=== PATIENT | female | born 1990 | race Asian ===

== ENCOUNTER 2017-04-26 19:38 | Emergency (ER) | payer OTHER ==
[~2017-04-26] VITALS: Ht 152.4 cm; Wt 71.0 kg
[~2017-04-26 19:38] MED LIST: AMO500 PO; AUG875 PO; IBUP-1542 PO; PRED20TA PO
[2017-04-26 20:39] VITALS: Ht 152.4 cm; Wt 71.0 kg
[2017-04-26] MEDS ORDERED: SOD CHLORIDE 0.9% 1,000 ML IV STA (21:15)
[2017-04-26] MEDS ORDERED: KETOROLAC 30 MG INJ IV STA (21:15)
[2017-04-26 22:07] LABS: ADD SCAN DIFF NO
[2017-04-26 22:12] LABS: BASOPHIL # 0.1 10^3/ul (0.0-0.1); BASOPHILS % 0.7 % (0.0-2.0); EOSINOPHILS # 0.1 10^3/ul (0.0-0.5); EOSINOPHILS % 0.9 % (0.0-7.0); HEMATOCRIT 41.6 % (37.0-47.0); HEMOGLOBIN 14.2 g/dl (12.0-16.0); LYMPHOCYTES # 4.2 10^3/ul (0.8-2.9); LYMPHOCYTES % 33.1 % (15.0-51.0); MEAN CORPUSCULAR HEMOGLOBIN 29.9 pg (29.0-33.0); MEAN CORPUSCULAR HGB CONC 34.1 g/dl (32.0-37.0); MEAN CORPUSCULAR VOLUME 87.6 fl (82.0-101.0); MEAN PLATELET VOLUME 10.6 fl (7.4-10.4); MONOCYTE # 0.7 10^3/ul (0.3-0.9); MONOCYTES % 5.8 % (0.0-11.0); NEUTROPHIL # 7.4 10^3/ul (1.6-7.5); NEUTROPHILS % 58.9 % (39.0-77.0); PLATELET COUNT 316 10^3/UL (140-415); RED BLOOD COUNT 4.75 10^6/ul (4.20-5.40); WHITE BLOOD COUNT 12.6 10^3/ul (4.8-10.8)
[2017-04-26 22:14] LABS: ADD UMIC YES; UR BILIRUBIN (Dip) NEGATIVE (NEGATIVE); UR BLOOD (Dip) 1+ (NEGATIVE); UR CLARITY CLEAR (CLEAR); UR COLOR LT. YELLOW (YELLOW); UR GLUCOSE (Dip) NEGATIVE (NEGATIVE); UR KETONES (Dip) NEGATIVE (NEGATIVE); UR LEUKOCYTE ESTERASE (Dip) 1+ (NEGATIVE); UR NITRITE (Dip) NEGATIVE (NEGATIVE); UR TOTAL PROTEIN (Dip) NEGATIVE (NEGATIVE); UR UROBILINOGEN (Dip) 0.2 E.U./dL (0.1-1.0)
[2017-04-26 22:25] LABS: UR SQUAMOUS EPITHELIAL CELL MODERATE; URINE RBCS 25-50 /HPF (0)
--- NOTE | 2017-04-26 22:25 | RADRPT ---
PROCEDURE: Renal US. CLINICAL INDICATION: left flank pain TECHNIQUE: Multiple sonographic images of the kidneys were obtained. The images were reviewed on a PACS workstation. COMPARISON: No prior studies are available for comparison. FINDINGS: The kidneys are well visualized. The right kidney measures 10.8 cm sagittal by three-point a by 4.7 cm. The left kidney measures 10.6 x 5.2 by 4.3 cm. There is a 3 mm echogenic focus in the lower mid dle third of the left kidney. This may be the result of a small myelolipoma. A nonobstructive neph rolith is less likely.. There are no focal areas of abnormal echogenicity. There is no evidence for obstructive uropathy. The urinary bladder is unremarkable. IMPRESSION: 1. No evidence of hydronephrosis involving either kidney. No obstructing ureterolith or nephrolith is identified. 2. 3 mm echogenic focus without acoustic shadowing in the lower middle third of the left kidney. T his is likely a small myelolipoma. Its appearance is benign. Physician Dillon Date Time Electronically viewed and signed by Physician Dillon on 04/26/2017 22:25 /
[2017-04-26 22:26] LABS: UR BACTERIA FEW
[2017-04-26 22:39] LABS: ALBUMIN 5.2 g/dl (3.3-4.9); ALBUMIN/GLOBULIN RATIO 1.57; BILIRUBIN,INDIRECT 0.2 mg/dl (0-1.1); BILIRUBIN,TOTAL 0.2 mg/dl (0.2-1.3); CALCIUM 10.2 mg/dl (8.4-10.2); CREATININE 0.61 mg/dl (0.44-1.00); POTASSIUM 3.5 mmol/L (3.5-5.1); TOTAL PROTEIN 8.5 g/dl (6.1-8.1)
[2017-04-26] MEDS ORDERED: CEPH-443 PO (23:53)
[2017-04-26] MEDS ORDERED: NAPR-260 PO (23:53)
[2017-04-27 00:09] VITALS: BP 113/85; PULSE 85; RESP 18
--- NOTE | 2017-04-27 00:32 | ERD ---
ER Documentation Chief Complaint Date/Time DATE: 04/27/17 TIME: 00:30 Chief Complaint Left pelvic and flank pain since last night HPI 27-year-old female patient with a past medical history of nephrolithiasis presents to the ED complaining of left flank pain radiating to her left pelvic region. Describes the pain as achy and rates it a 5 out of 10. States that it was a 10 out of 10 last night. States that she was diagnosed with nephrolithiasis 5 months ago in the [facility]. Reports that it was nonobstructing. Denies any fever, chills, nausea, vomiting, diarrhea. Reports normal daily bowel movements. Does not remember her last menses. ROS All systems reviewed and are negative except as per history of present illness. Medications Home Meds Active Scripts Cephalexin* (Keflex*) 500 Mg Capsule, 500 MG PO QID for 7 Days, CAP Prov:DOROTHY PATEL PA-C 04/26/17 Naproxen* (Naprosyn*) 500 Mg Tablet, 500 MG PO BID Y for PAIN AND/OR INFLAMMATION, #30 TAB Prov:DOROTHY PATEL PA-C 04/26/17 Ibuprofen* (Motrin*) 600 Mg Tab, 600 MG PO Q8, #30 [facility] 12/20/15 Amoxicillin-Clavulanate K* (Augmentin*) 875 Mg Tab, 875 MG PO BID for 10 Days, TAB [facility] 12/20/15 Amoxicillin* (Amoxicillin*) 500 Mg Cap, 500 MG PO BID for 5 Days, CAP Prov:DURGA BERMEO NP 12/15/15 Prednisone* (Prednisone*) 20 Mg Tab, 20 MG PO DAILY for 4 Days, TAB Prov:DURGA BERMEO NP 12/15/15 Ibuprofen* (Motrin*) 600 Mg Tab, 600 MG PO Q6, #20 TAB Prov:CALEB TITUS PA-C 09/21/15 Allergies Allergies: Coded Allergies: No Known Drug Allergies (Verified Allergy, Unknown, 09/21/15) PMhx/Soc Medical and Surgical Hx: pt denies Medical Hx, pt denies Surgical Hx History of Surgery: No Anesthesia Reaction: No Hx Neurological Disorder: No Hx Respiratory Disorders: No Hx Cardiac Disorders: No Hx Psychiatric Problems: No Hx Miscellaneous Medical Probl: No Hx Alcohol Use: No Hx Substance Use: No Hx Tobacco Use: No Physical Exam Vitals Vital Signs Date Time Temp Pulse Resp B/P Pulse Ox O2 Delivery O2 Flow Rate FiO2 04/27/17 00:09 85 18 113/85 97 Room Air 04/26/17 20:39 99.1 107 20 135/87 97 Physical Exam Const: [id number], well-nourished. In no acute distress. Head: Atraumatic, normocephalic Eyes: Normal Conjunctiva without injection. No purulent discharge. ENT: Normal external ear, nose. Moist oropharynx without tonsillar exudates. Non -erythematous pharynx. Uvula midline. No drooling. No trismus. Neck: No cervical midline tenderness. Full range of motion. No meningismus. No cervical lymphadenopathy. No JVD. Resp: Clear to auscultation bilaterally. No wheezing, rhonchi, rales, or crackles. No accessory muscle use. No retractions. Cardio: Regular rate and rhythm. No murmurs, rubs or gallops. Abd: Soft, left pelvic pain, non distended. Normal bowel sounds. No palpable masses. No rebound tenderness. No guarding. Negative McBurney's point. Negative psoas sign. Negative obturator sign. Skin: No petechiae or rashes Back: No midline tenderness. No CVA tenderness. Ext: No cyanosis, or edema. Neur: Awake and alert. Normal gait. Normal coordination. Psych: Normal Mood and Affect Results 24 hrs Laboratory Tests Test 04/26/17 21:45 White Blood Count 12.610^3/ul Red Blood Count 4.7510^6/ul Hemoglobin 14.2g/dl Hematocrit 41.6% Mean Corpuscular Volume 87.6fl Mean Corpuscular Hemoglobin 29.9pg Mean Corpuscular Hemoglobin Concent 34.1g/dl Red Cell Distribution Width 12.0% Platelet Count 11366^3/UL Mean Platelet Volume 10.6fl Neutrophils % 58.9% Lymphocytes % 33.1% Monocytes % 5.8% Eosinophils % 0.9% Basophils % 0.7% Nucleated Red Blood Cells % 0.0/100WBC Neutrophils # 7.410^3/ul Lymphocytes # 4.210^3/ul Monocytes # 0.710^3/ul Eosinophils # 0.110^3/ul Basophils # 0.110^3/ul Nucleated Red Blood Cells # 0.010^3/ul Urine Color LT. YELLOW Urine Clarity CLEAR Urine pH 5.5 Urine Specific [place] 1.010 Urine Ketones NEGATIVE Urine Nitrite NEGATIVE Urine Bilirubin NEGATIVE Urine Urobilinogen 0.2 E.U./dL Urine Leukocyte Esterase 1+ Urine Microscopic RBC 25-50/HPF Urine Microscopic WBC 2-5/HPF Urine Squamous Epithelial Cells MODERATE Urine Bacteria FEW Urine Hemoglobin 1+ Urine Glucose NEGATIVE% Urine Total Protein NEGATIVE Sodium Level 141mmol/L Potassium Level 3.5mmol/L Chloride Level 103mmol/L Carbon Dioxide Level 28mmol/L Anion Gap 14 Blood Urea Nitrogen 8mg/dl Creatinine 0.61mg/dl Glucose Level 97mg/dl Calcium Level 10.2mg/dl Total Bilirubin 0.2mg/dl Direct Bilirubin 0.00mg/dl Indirect Bilirubin 0.2mg/dl Aspartate Amino Transf (AST/SGOT) 22IU/L Alanine Aminotransferase (ALT/SGPT) 29IU/L Alkaline Phosphatase 69IU/L Total Protein 8.5g/dl Albumin 5.2g/dl Globulin 3.30g/dl Albumin/Globulin Ratio 1.57 Lipase 85U/L Current Medications Medications (Trade) Dose Ordered Sig/Nghia Route PRN Reason Start Time Stop Time Status Last Admin Dose Admin Sodium Chloride (NS) 1,000 ml @ 1,000 mls/hr Q1H STAT IV 04/26/17 21:15 04/26/17 22:14 DC 04/26/17 21:56 Ketorolac Tromethamine (Toradol) 30 mg ONCE STAT IV 04/26/17 21:15 04/26/17 21:21 DC 04/26/17 21:57 Procedures/MDM This is a 27-year-old female patient with no significant past medical history presents to the ED complaining of left flank pain radiating to her left pelvic region. Patient is afebrile nontoxic appearing. Patient has normal vital signs. Patient was further worked up with CBC, CMP, lipase, UA, urine , renal ultrasound. Patient's pain and symptoms have improved after treatment with 30 mg IV ketorolac, 1 L of normal saline. CBC: Leukocytosis of 12.6. No e/o of systemic infection. No e/o anemia. CMP: No e/o severe acidosis, alkalosis, renal failure, diabetic ketoacidosis, liver disease Lipase within normal limits. Urine: 1+ leukocyte esterase with WBC 2-5, no nitrites, 2+ hematuria. Urine : negative PROCEDURE: Renal US. CLINICAL INDICATION: left flank pain TECHNIQUE: Multiple sonographic images of the kidneys were obtained. The images were reviewed on a PACS workstation. COMPARISON: No prior studies are available for comparison. FINDINGS: The kidneys are well visualized. The right kidney measures 10.8 cm sagittal by three-point a by 4.7 cm. The left kidney measures 10.6 x 5.2 by 4.3 cm. There is a 3 mm echogenic focus in the lower middle third of the left kidney. This may be the result of a small myelolipoma. A nonobstructive nephrolith is less likely.. There are no focal areas of abnormal echogenicity. There is no evidence for obstructive uropathy. The urinary bladder is unremarkable. IMPRESSION: 1. No evidence of hydronephrosis involving either kidney. No obstructing ureterolith or nephrolith is identified. 2. 3 mm echogenic focus without acoustic shadowing in the lower middle third of the left kidney. This is likely a small myelolipoma. Its appearance is benign. Patient symptoms are likely due to nephrolithiasis without any signs of obstruction or hydronephrosis. Low suspicion for gastritis, GERD, peptic ulcer disease, cholecystitis, choledocholithiasis, cholangitis, pancreatitis, appendicitis, bowel obstruction, ileus, volvulus, nephrolithiasis, pyelonephritis, hepatitis, perforated viscus, diverticulitis, abdominal hernia, acute abdomen, mesenteric ischemia or other emergent conditions. 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 Instructed patient to return to the ED sooner for any worsening symptoms. Patient's questions were answered. Patient understood and agreed with discharge plan. Patient discharged stable. Departure Diagnosis: Primary Impression: Flank pain Additional Impression: Urinary tract infection Urinary tract infection type: site unspecified Hematuria presence: with hematuria Qualified Code: N39.0 - Urinary tract infection with hematuria, site unspecified Condition: Stable Patient Instructions: Urinary Tract Infections in Women, Flank Pain, Uncertain Cause, Kidney Stone W/ Colic Additional Instructions: Call your primary care doctor TOMORROW for an appointment during the next 1-2 days.See the doctor sooner or return here if your condition worsens before your appointment time. DOROTHY PATEL PA-C Apr 27, 2017 00:32 days.See the doctor sooner or return here if your condition worsens before your appointment time. DOROTHY PATEL PA-C Apr 27, 2017 00:32
== END 2017-04-27 00:10 | disposition home or self-care (01) ==
LOC: FTE 19:38
DX: R10.9 Unspecified abdominal pain (principal); N39.0 Urinary tract infection, site not specified; R10.2 Pelvic and perineal pain
CPT/HCPCS: 76775; 80053; 81001; 83690; 85025; J1885; J7030; 36415; 96374

== ENCOUNTER 2017-07-19 13:17 | Emergency (ER) | payer OTHER ==
[~2017-07-19] VITALS: Wt 74.5 kg
[~2017-07-19 13:17] MED LIST changes: +CEPH-443 PO; +NAPR-260 PO
[2017-07-19 15:11] LABS: URINE BLOOD (Dip) POC 2+ (NEGATIVE)
[2017-07-19] MEDS ORDERED: PHEN-538 PO (15:19)
[2017-07-19] MEDS ORDERED: CEPH-443 PO (15:19)
[2017-07-19] MEDS ORDERED: CEPHALEXIN 500 MG CAP PO ONE (15:30)
[2017-07-19] MEDS ORDERED: PHENAZOPYRIDINE 100 MG TAB PO ONE (15:30)
--- NOTE | 2017-08-04 12:37 | ERD ---
ER Documentation Chief Complaint Date/Time DATE Of service 07/19/2017. Date of dictation 08/04/2017 TIME: 12:35 Chief Complaint flank pain, blood in urine HPI 27-year-old female presents with dysuria and hematuria. She has some mild lower abdominal pain or low back pain. She denies any fevers, vomiting right lower quadrant abdominal pain. She denies . ROS All systems reviewed and are negative except as per history of present illness. Medications Home Meds Active Scripts Phenazopyridine Hcl* (Pyridium*) 200 Mg Tab, 200 MG PO TID Y for URINARY PAIN, # 6 TAB Prov:ANTOINE VILCHIS MD 07/19/17 Cephalexin* (Keflex*) 500 Mg Capsule, 500 MG PO QID for 5 Days, CAP Prov:ANTOINE VILCHIS MD 07/19/17 Cephalexin* (Keflex*) 500 Mg Capsule, 500 MG PO QID for 7 Days, CAP Prov:DOROTHY PATEL PA-C 04/26/17 Naproxen* (Naprosyn*) 500 Mg Tablet, 500 MG PO BID Y for PAIN AND/OR INFLAMMATION, #30 TAB Prov:DOROTHY PATEL PA-C 04/26/17 Ibuprofen* (Motrin*) 600 Mg Tab, 600 MG PO Q8, #30 TAB Prov:MARÍA QUIROGA DO 12/20/15 Amoxicillin-Clavulanate K* (Augmentin*) 875 Mg Tab, 875 MG PO BID for 10 Days, TAB Prov:MARÍA QUIROGA DO 12/20/15 Amoxicillin* (Amoxicillin*) 500 Mg Cap, 500 MG PO BID for 5 Days, CAP Prov:DURGA BERMEO NP 12/15/15 Prednisone* (Prednisone*) 20 Mg Tab, 20 MG PO DAILY for 4 Days, TAB Prov:DURGA BERMEO NP 12/15/15 Ibuprofen* (Motrin*) 600 Mg Tab, 600 MG PO Q6, #20 TAB Prov:CALEB TITUS PA-C 09/21/15 Allergies Allergies: Coded Allergies: No Known Drug Allergies (Verified Allergy, Unknown, 09/21/15) PMhx/Soc History of Surgery: No Anesthesia Reaction: No Hx Neurological Disorder: No Hx Respiratory Disorders: No Hx Cardiac Disorders: No Hx Psychiatric Problems: No Hx Miscellaneous Medical Probl: No Hx Alcohol Use: No Hx Substance Use: No Hx Tobacco Use: No Smoking Status: Never smoker Physical Exam Physical Exam Const: []Alert, [id number]. Head: Atraumatic Eyes: Normal Conjunctiva ENT: Normal External Ears, Nose and Mouth. Neck: Full range of motion..~ No meningismus. Resp: Clear to auscultation bilaterally Cardio: Regular rate and rhythm, no murmurs Abd: Soft, Minimal suprapubic tenderness Urine shows hemoglobin and leukocytes. Patient presents with dysuria no abdominal pain and signs of UTI. Current signs and symptoms do not suggest appendicitis, sepsis, ectopic , PID. She will be treated with Keflex and Pyridium and further observation at home. The patient was stable with no new complaints during the ER course. Clinically, there is no current evidence to suggest meningitis, sepsis, acute abdomen, pneumonia, acute coronary syndrome , pulmonary embolism, or any other emergent condition appearing to require further evaluation or hospitalization. The patient should certainly return for any new or worsening symptoms per the aftercare instructions. They should otherwise follow-up with her primary care doctor for reevaluation this week., non distended. Normal bowel sounds Skin: No petechiae or rashes Back: No midline or flank tenderness Ext: No cyanosis, or edema Neur: Awake and alert Psych: Normal Mood and Affect Results 24 hrs Laboratory Tests Test 07/19/17 15:16 07/20/17 12:12 Bedside Urine pH (LAB) 6.5 Bedside Urine Protein (LAB) Negative Bedside Urine Glucose (UA) Negative Bedside Urine Ketones (LAB) Negative Bedside Urine Blood 2+ Bedside Urine Nitrite (LAB) Negative Bedside Urine Leukocyte Esterase (L Trace Lab Scanned Report [id number] Current Medications Medications (Trade) Dose Ordered Sig/Nghia Route PRN Reason Start Time Stop Time Status Last Admin Dose Admin Cephalexin (Keflex) 500 mg ONCE ONCE PO 07/19/17 15:30 07/19/17 15:31 DC 07/19/17 15:30 Phenazopyridine HCl (Pyridium) 200 mg ONCE ONCE PO 07/19/17 15:30 07/19/17 15:31 DC 07/19/17 15:30 Departure Diagnosis: Primary Impression: Dysuria Additional Impression: Urinary tract infection Urinary tract infection type: acute cystitis Hematuria presence: without hematuria Qualified Code: N30.00 - Acute cystitis without hematuria Condition: Stable Patient Instructions: Understanding Urinary Tract Infections (UTIs) Additional Instructions: Urine shows infection. Drink plenty of fluids at home. Recheck for new or worsening symptoms with primary care doctor. ANTOINE VILCHIS MD Aug 04, 2017 12:37
== END 2017-07-19 15:40 | disposition home or self-care (01) ==
LOC: FTE 13:17
DX: N30.00 Acute cystitis without hematuria (principal)
CPT/HCPCS: 81003; Z7502; Z7610; 99283

== ENCOUNTER 2017-08-19 20:09 | Emergency (ER) | payer OTHER ==
[~2017-08-19] VITALS: Ht 152.4 cm; Wt 72.0 kg
[~2017-08-19 20:09] MED LIST changes: -AMO500 PO; +AMOX500C2 PO; +PHEN-538 PO
[2017-08-19 20:16] VITALS: Ht 152.4 cm; Wt 72.0 kg
[2017-08-19] MEDS ORDERED: ONDANSETRON (ODT) 4 MG TAB ODT STA (20:37)
--- NOTE | 2017-08-19 20:45 | ERD ---
ER Documentation Chief Complaint Date/Time DATE: 08/19/17 TIME: 20:43 Chief Complaint blood in urine since yesterday HPI Patient is a 27-year-old female who is otherwise healthy and is complaining of 2 complaints. She is complaining of dysuria hematuria and increased urinary frequency and low back pain that she has had since yesterday. No nausea or vomiting. No fever. She is also complaining of dizziness that is worse when she is driving in her car. She states it feels like the room is spinning. No chest pain or shortness of breath. She has not tried any medications for this. Last menstrual period was August 08. ROS All systems reviewed and are negative except as per history of present illness. Medications Home Meds Active Scripts Meclizine Hcl* (Meclizine Hcl*) 25 Mg Tablet, 25 MG PO Q8H Y for DIZZINESS, #30 TAB Prov:TONI JONES PA-C 08/19/17 Ondansetron (Ondansetron Odt) 4 Mg Tab.rapdis, 4 MG PO Q6H Y for NAUSEA AND/OR VOMITING, #15 TAB Prov:TONI JONES PA-C 08/19/17 Cephalexin* (Keflex*) 500 Mg Capsule, 500 MG PO BID for 7 Days, CAP Prov:TONI JONES PA-C 08/19/17 Phenazopyridine Hcl* (Pyridium*) 200 Mg Tab, 200 MG PO TID Y for URINARY PAIN, # 6 TAB Prov:ANTOINE VILCHIS MD 07/19/17 Cephalexin* (Keflex*) 500 Mg Capsule, 500 MG PO QID for 5 Days, CAP Prov:ANTOINE VILCHIS MD 07/19/17 Cephalexin* (Keflex*) 500 Mg Capsule, 500 MG PO QID for 7 Days, CAP Prov:DOROTHY PATEL PA-C 04/26/17 Naproxen* (Naprosyn*) 500 Mg Tablet, 500 MG PO BID Y for PAIN AND/OR INFLAMMATION, #30 TAB Prov:DOROTHY PATEL PA-C 04/26/17 Ibuprofen* (Motrin*) 600 Mg Tab, 600 MG PO Q8, #30 TAB Prov:MARÍA QUIROGA DO 12/20/15 Amoxicillin-Clavulanate K* (Augmentin*) 875 Mg Tab, 875 MG PO BID for 10 Days, TAB Prov:MARÍA QUIROGA DO 12/20/15 Amoxicillin* (Amoxicillin*) 500 Mg Cap, 500 MG PO BID for 5 Days, CAP Prov:DURGA BERMEO NEEDLE POLISHER 12/15/15 Prednisone* (Prednisone*) 20 Mg Tab, 20 MG PO DAILY for 4 Days, TAB Prov:DURGA BERMEO NEEDLE POL[employer]ER 12/15/15 Ibuprofen* (Motrin*) 600 Mg Tab, 600 MG PO Q6, #20 TAB Prov:CALEB TITUS PA-C 09/21/15 Allergies Allergies: Coded Allergies: No Known Drug Allergies (Verified Allergy, Unknown, 09/21/15) PMhx/Soc History of Surgery: No Anesthesia Reaction: No Hx Neurological Disorder: No Hx Respiratory Disorders: No Hx Cardiac Disorders: No Hx Psychiatric Problems: No Hx Miscellaneous Medical Probl: No Hx Alcohol Use: No Hx Substance Use: No Hx Tobacco Use: No Smoking Status: Never smoker FmHx Family History: No diabetes Physical Exam Vitals Vital Signs Date Time Temp Pulse Resp B/P Pulse Ox O2 Delivery O2 Flow Rate FiO2 08/19/17 20:16 97.6 79 20 120/68 100 Physical Exam INITIAL VITAL SIGNS: Reviewed by me GENERAL: Awake, alert and oriented x 4, well appearing, nontoxic, speaking in full sentences. No acute distress HEAD: Atraumatic NECK: Supple. No masses. Full range of motion. No meningismus. No midline tenderness. RESPIRATORY: Clear to auscultation bilaterally. Symmetric chest wall rise. No wheezing or rales. No accessory muscle use. CV: Regular rate and rhythm. No murmurs, rubs, or gallops. ABDOMEN: Soft, non-distended. Nontender. Negative Many. Negative McBurneys point tenderness. No CVA tenderness bilaterally. No guarding. No rebound. : Deffered. NEUROLOGIC: Normal mental status and speech. Face is symmetric. Moves all extremities equally. Motor and sensory distally intact. Normal coordination. Ambulates with a strong steady gait. Results 24 hrs Laboratory Tests Test 08/19/17 20:45 08/19/17 20:53 Urine Color YELLOW Urine Clarity SLIGHTLY CLOUDY Urine pH 6.0 Urine Specific [place] 1.017 Urine Ketones NEGATIVEmg/dL Urine Nitrite NEGATIVEmg/dL Urine Bilirubin NEGATIVEmg/dL Urine Urobilinogen NEGATIVEmg/dL Urine Leukocyte Esterase TRACELeu/ul Urine Microscopic RBC > 182/HPF Urine Microscopic WBC 17/HPF Urine Squamous Epithelial Cells FEW/HPF Urine Hemoglobin 3+mg/dL Urine Glucose NEGATIVEmg/dL Urine Total Protein NEGATIVEmg/dl Bedside Glucose 118mg/dL Current Medications Medications (Trade) Dose Ordered Sig/Nghia Route PRN Reason Start Time Stop Time Status Last Admin Dose Admin Ondansetron HCl (Zofran Odt) 4 mg ONCE STAT ODT 08/19/17 20:37 08/19/17 20:39 DC 08/19/17 20:50 Meclizine HCl (Antivert) 25 mg ONCE ONCE PO 08/19/17 21:00 08/19/17 21:01 DC 08/19/17 20:50 Procedures/MDM 27-year-old female presents with dysuria hematuria and increased urinary frequency. She most likely has a UTI urinalysis and urine test was ordered. She has no nausea vomiting or fever I doubt she has pyelonephritis or kidney stones. Doubt any emergent cause of her urinary symptoms. Patients is alert, oriented, well appearing, and in no distress with normal vital signs. There is no fever, tachycardia, or tachypnea. She is also complaining of dizziness that is usually worse when she is driving in her car. She is otherwise healthy and has no significant past medical history. She is well- appearing in no distress and neurological exam is normal. This is most likely vertigo and she states that this dizziness is worse when she moves her head and feels like the room is spinning. She was given Zofran and meclizine here. EKG and Accu-Chek ordered. Urinalysis confirms urinary tract infection. Accu-Chek and EKG shows no acute abnormalities. Patient discharged with Keflex, Zofran, and meclizine. Patient counseled regarding my diagnostic impression and care plan. Prior to discharge all questions answered. Pt agrees with treatment plan and understands strict return precautions. Pt is instructed to follow up with primary care provider within 24-48 hours. Precautionary instructions provided including instructions to return to the ER if not improving or for any worsening or changing symptoms or concerns. Departure Diagnosis: Primary Impression: Dysuria Additional Impression: Benign positional vertigo Condition: Stable TONI JONES PA-C Aug 19, 2017 20:45
[2017-08-19] MEDS ORDERED: MECLIZINE 12.5 MG TAB PO ONE (21:00)
[2017-08-19 21:33] LABS: ADD UMIC YES; UR ASCORBIC ACID NEGATIVE (NEGATIVE); UR BILIRUBIN (Dip) NEGATIVE (NEGATIVE); UR BLOOD (Dip) 3+ mg/dL (NEGATIVE); UR CLARITY SLIGHTLY CLOUDY (CLEAR); UR COLOR YELLOW (YELLOW); UR GLUCOSE (Dip) NEGATIVE (NEGATIVE); UR KETONES (Dip) NEGATIVE (NEGATIVE); UR LEUKOCYTE ESTERASE (Dip) TRACE Leu/ul (NEGATIVE); UR NITRITE (Dip) NEGATIVE (NEGATIVE); UR RBC > 182 /HPF (0-5); UR SPECIFIC GRAVITY (Dip) 1.017 (1.003-1.030); UR SQUAMOUS EPITHELIAL CELL FEW /HPF (FEW); UR TOTAL PROTEIN (Dip) NEGATIVE (NEGATIVE); UR UROBILINOGEN (Dip) NEGATIVE (NEGATIVE)
[2017-08-19] MEDS ORDERED: CEPH-443 PO (21:39)
[2017-08-19] MEDS ORDERED: ONDA4TAB14 PO (21:39)
[2017-08-19] MEDS ORDERED: MECL-77 PO (21:39)
== END 2017-08-19 21:50 | disposition home or self-care (01) ==
LOC: FTE 20:09
DX: H81.10 Benign paroxysmal vertigo, unspecified ear (principal); R30.0 Dysuria
CPT/HCPCS: 81001; 82962; 93005; Z7502; Z7610

== ENCOUNTER 2019-06-26 10:18 | Emergency (ER) | payer OTHER ==
[~2019-06-26] VITALS: Ht 152.4 cm; Wt 68.0 kg
[~2019-06-26 10:18] MED LIST changes: +MECL-77 PO; -NAPR-260 PO; +NAPR-985 PO; +ONDA4TAB14 PO
[2019-06-26 10:21] VITALS: BP 118/82; PULSE 70; RESP 18; Ht 152.4 cm; Wt 68.0 kg
[2019-06-26] MEDS ORDERED: ACETAMINOPHEN 500 MG TAB PO STA (11:23)
--- NOTE | 2019-06-28 10:57 | ERD ---
ER Documentation Chief Complaint Chief Complaint dysuria and hematuria x 4 days HPI This is a 29 yo female patient who presents with urinary frequency x4days. No fevers, no back pain, no vaginal discharge. ROS All systems reviewed and are negative except as per history of present illness. Medications Home Meds Active Scripts Meclizine Hcl* (Meclizine Hcl*) 25 Mg Tablet, 25 MG PO Q8H PRN for DIZZINESS, #30 TAB Prov:TONI JONES PA-C 08/19/17 Ondansetron (Ondansetron Odt) 4 Mg Tab.rapdis, 4 MG PO Q6H PRN for NAUSEA AND/OR VOMITING, #15 TAB Prov:TONI JONES PA-C 08/19/17 Cephalexin* (Keflex*) 500 Mg Capsule, 500 MG PO BID for 7 Days, CAP Prov:TONI JONES PA-C 08/19/17 Phenazopyridine Hcl* (Pyridium*) 200 Mg Tab, 200 MG PO TID PRN for URINARY PAIN, #6 TAB Prov:ANTOINE VILCHIS MD 07/19/17 Cephalexin* (Keflex*) 500 Mg Capsule, 500 MG PO QID for 5 Days, CAP Prov:ANTOINE VILCHIS MD 07/19/17 Cephalexin* (Keflex*) 500 Mg Capsule, 500 MG PO QID for 7 Days, CAP Prov:DOROTHY PATEL PA-C 04/26/17 Naproxen* (Naprosyn*) 500 Mg Tablet, 500 MG PO BID PRN for PAIN AND/OR INFLAMMATION, #30 TAB Prov:DOROTHY PATEL PA-C 04/26/17 Ibuprofen* (Motrin*) 600 Mg Tab, 600 MG PO Q8, #30 TAB Prov:MARÍA QUIROGA DO 12/20/15 Amoxicillin-Clavulanate K* (Augmentin*) 875 Mg Tab, 875 MG PO BID for 10 Days, TAB Prov:MARÍA QUIROGA DO 12/20/15 Amoxicillin* (Amoxicillin*) 500 Mg Cap, 500 MG PO BID for 5 Days, CAP Prov:DURGA BERMEO NP 12/15/15 Prednisone* (Prednisone*) 20 Mg Tab, 20 MG PO DAILY for 4 Days, TAB Prov:DURGA BERMEO NP 12/15/15 Ibuprofen* (Motrin*) 600 Mg Tab, 600 MG PO Q6, #20 TAB Prov:CALEB TITUS PA-C 09/21/15 Allergies Allergies: Coded Allergies: No Known Drug Allergies (Verified Allergy, Unknown, 06/26/19) PMhx/Soc Medical and Surgical Hx: pt denies Surgical Hx History of Surgery: No Anesthesia Reaction: No Hx Neurological Disorder: No Hx Respiratory Disorders: No Hx Cardiac Disorders: No Hx Psychiatric Problems: Yes (anxiety, depression) Hx Miscellaneous Medical Probl: No Hx Alcohol Use: Yes Hx Substance Use: No Hx Tobacco Use: Yes Smoking Status: Current every day smoker FmHx Family History: No diabetes, No coronary disease, No other Physical Exam Vitals Vital Signs Date Temp Pulse Resp B/P (MAP) Pulse Ox O2 O2 Flow FiO2 Time Delivery Rate 06/26/19 98.0 70 18 118/82 98 10:21 (94) Physical Exam Const: No acute distress Head: Atraumatic Eyes: Normal Conjunctiva, PERRL ENT: Normal External Ears, Nose and Mouth. Neck: Full range of motion. No meningismus. No lymphadenopathy. Resp: Clear to auscultation bilaterally Cardio: Regular rate and rhythm, no murmurs Abd: Soft, non tender, non distended. Normal bowel sounds Skin: No petechiae or rashes Back: No midline or flank tenderness Ext: No cyanosis, or edema Neur: Awake and alert, clear speech, steady gait Psych: Normal Mood and Affect Results 24 hrs Laboratory Tests Test 06/26/19 11:20 06/26/19 13:26 Urine Color YELLOW Urine Clarity CLEAR Urine pH 5.0 Urine Specific [place] 1.015 Urine Ketones NEGATIVE mg/dL Urine Nitrite NEGATIVE mg/dL Urine Bilirubin NEGATIVE mg/dL Urine Urobilinogen NEGATIVE mg/dL Urine Leukocyte Esterase NEGATIVE Beto/ul Urine Hemoglobin NEGATIVE mg/dL Urine Glucose NEGATIVE mg/dL Urine Total Protein NEGATIVE mg/dl POC Beta HCG, Qualitative NEGATIVE Bedside Urine pH (LAB) 7.0 Bedside Urine Protein (LAB) Negative Bedside Urine Glucose (UA) Negative Bedside Urine Ketones (LAB) Negative Bedside Urine Blood Negative Bedside Urine Nitrite (LAB) Negative Bedside Urine Leukocyte Esterase (L Trace Current Medications Medications Dose Sig/Nghia Start Time Status Last (Trade) Ordered Route PRN Stop Time Admin Dose Reason Admin 1,000 mg ONCE STAT 06/26/19 DC 06/26/19 Acetaminophen PO 11:23 06/26/19 11:27 (Tylenol 11:24 Tab) Procedures/MDM PROCEDURES/MDM LAB INTERPRETATION: UA negative for UTI MDM: This is a 29 yo female who presents with concern for hematuria and urinary frequency 4 days. Pt states she has hx of kidney stones. No abd pain, no vaginal discharge, no fevers. There is low suspicion for pyelonephritis, vaginitis, STI, or interstitial cystitis due to absence of clinical findings that would support a diagnosis of these or even UTI. These diagnoses have been considered and excluded clinically. Nonetheless, it is understood by both the patient and provider that no clinical or diagnostic assessment can entirely exclude such diseases. Patient has been instructed on signs and symptoms of concern or with evolving condition with strict instructions to return to ED for reevaluation. Patient has been instructed on increasing hydration, decreasing intake of bladder stimulants such as caffeine, and red flag s/sx to return to ER. Pt verbalized understanding of self-care and when to return to ER vs follow-up with PMD. DISPOSITION and PLAN: RX: none The patient has been discharge home to follow-up with community physician. Departure Diagnosis: Primary Impression: Dysuria Condition: Stable Patient Instructions: Dysuria Referrals: FORTUNATO SNYDER (PCP) Additional Instructions: Thank you very much for allowing us to participate in your care. Your health and safety is our top priority at [facility]. Call your primary care doctor TOMORROW for an appointment during the next 2-4 days and bring all the information and medications prescribed. Have prescriptions filled and follow precisely the directions on the label. If the symptoms get worse and your provider is unavailable, return to the Emergency Department immediately. INCREASE WATER INTAKE TO 1 TO 2 L/DAY USE TYLENOL OR IBUPROFEN NEEDED FOR PAIN RETURN TO THE EMERGENCY ROOM WITH DIFFICULTY WITH URINATION, BLOOD IN URINE, FEVER, WORSENING OR CHANGING OF YOUR SYMPTOMS SAPNA BANUELOS NP Jun 28, 2019 10:56
== END 2019-06-26 13:28 | disposition home or self-care (01) ==
LOC: FTE 10:18
DX: R30.0 Dysuria (principal); F17.210 Nicotine dependence, cigarettes, uncomplicated
CPT/HCPCS: 81003; 81025; Z7502; Z7610; 99282